=== PATIENT | male | born 1970 | race American Indian/Alaskan Native ===

== ENCOUNTER 2017-10-29 13:10 | Inpatient (IN) | payer OTHER ==
[2017-10-29] MEDS ORDERED: TYLENOL PO ONE (13:17)
[2017-10-29] MEDS ORDERED: NACL 0.9% 1000 ML 1,000 ML IV ONE ×2 (13:35→14:17)
[2017-10-29] MEDS ORDERED: LEVAQUIN 750MG/150ML 750 MG/150 ML BAG IV ONE (14:17)
[2017-10-29 14:50] LABS: Bacteria,Urine 2+ /HPF (Negative); Bilirubin,Urine NEG (Negative); Blood,Urine LG (Negative); Ketones,Urine NEG (Negative); Leukocyte Esterase,Urine NEG (Negative); Mucus,Urine FEW /HPF; Nitrite,Urine NEG (Negative); Urobilinogen,Urine < 2.0 mg/dL (<2.0)
[2017-10-29 14:52] LABS: WBC,Urine < 1.0 /HPF (0.0-6.0)
[2017-10-29 14:53] LABS: Hematocrit 48.2 % (35.5-45.6); Hemoglobin 16.2 gm/dl (11.8-15.2); Mean Corpuscular HGB Conc 34 % (32-34); Mean Corpuscular Hemoglobin 29 pg (28-32); Mean Corpuscular Volume 87 fl (84-94); Red Blood Count 5.55 M/mm3 (3.65-5.03); Red Cell Distribution Width 13.4 % (13.2-15.2); White Blood Count 13.7 K/mm3 (4.5-11.0)
[2017-10-29 15:11] LABS: Albumin 3.3 g/dL (3.9-5); Albumin/Globulin Ratio 0.8 %; Bilirubin,Total 0.9 mg/dL (0.1-1.2); Calcium 8.5 mg/dL (8.4-10.2); Chloride 92.6 mmol/L (98-107); Potassium 3.4 mmol/L (3.6-5.0); Total Protein 7.4 g/dL (6.3-8.2)
--- NOTE | 2017-10-29 15:14 | Emergency Department Report ---
HPI - General Chief Complaint: Fever Time Seen by Provider: 10/29/17 15:01 - HPI HPI: Room 5 The patient is a 47-year-old male presenting with a chief complaint of fever and cough. Patient states for 8-9 days he's had a cough that is occasionally productive. Patient missed a subjective fever in addition to the sore throat nausea and diarrhea. Patient states he has a sick contact at home who also has a cough. Location: Lungs Duration: 9 days Quality: Soreness Severity: Moderate Modifying factors: [see above] Context: [see above] Mode of transportation: [not driving] ED Past Medical Hx - Past Medical History Previous Medical History?: No - Surgical History Past Surgical History?: No - Family History Family history: no significant - Social History Smoking Status: Never Smoker Substance Use Type: None (denies illicit drug use), Alcohol (rare) ED Review of Systems ROS: Stated complaint: FLU LIKE SYMPTOMS Other details as noted in HPI Constitutional: diaphoresis, fever Eyes: denies: eye pain ENT: ear pain Respiratory: cough Cardiovascular: chest pain Gastrointestinal: abdominal pain, nausea, diarrhea. denies: vomiting Neurological: headache Physical Exam - Physical Exam Vital Signs: Vital Signs 10/29/17 13:14 Temperature 102.8 F H Pulse Rate 127 H Respiratory 20 Rate Blood Pressure 129/81 O2 Sat by Pulse 95 Oximetry Physical Exam: GENERAL: The patient is well-developed well-nourished male lying on stretcher appearing diaphoretic and in moderate discomfort. [] HEENT: Normocephalic. Atraumatic. Extraocular motions are intact. Patient has moist mucous membranes. NECK: Supple. Trachea midline CHEST/LUNGS: Clear to auscultation. There is no respiratory distress noted. HEART/CARDIOVASCULAR: Regular. There is tachycardia. There is no gallop rub or murmur. ABDOMEN: Abdomen is soft, nontender. Patient has normal bowel sounds. There is no abdominal distention. SKIN: There is no rash. There is no edema. There is diaphoresis. and gait. MUSCULOSKELETAL:There is no evidence of acute injury. ED Course Vital Signs 10/29/17 13:14 Temperature 102.8 F H Pulse Rate 127 H Respiratory 20 Rate Blood Pressure 129/81 O2 Sat by Pulse 95 Oximetry ED Medical Decision Making - Lab Data Result diagrams: 10/29/17 14:33 10/29/17 14:33 Laboratory Tests 10/29/17 10/29/17 10/29/17 14:12 14:33 14:33 WBC 13.7 H RBC 5.55 H Hgb 16.2 H Hct 48.2 H MCV 87 MCH 29 MCHC 34 RDW 13.4 Sodium 135 L Potassium 3.4 L Chloride 92.6 L Carbon Dioxide 19 L Anion Gap 27 BUN 28 H Creatinine 2.9 H Estimated GFR 28 BUN/Creatinine Ratio 10 Glucose 128 H Calcium 8.5 Total Bilirubin 0.90 AST 333 H ALT 107 H Alkaline Phosphatase 47 Total Protein 7.4 Albumin 3.3 L Albumin/Globulin Ratio 0.8 Urine Color Yellow Urine Turbidity Cloudy Urine pH 5.0 Ur Specific [place] 1.015 Urine Protein 100 mg/dl Urine Glucose (UA) Neg Urine Ketones Neg Urine Blood Lg Urine Nitrite Neg Urine Bilirubin Neg Urine Urobilinogen < 2.0 Ur Leukocyte Esterase Neg Urine WBC (Auto) < 1.0 Urine RBC (Auto) 4.0 Urine Bacteria (Auto) 2+ Amorphous Crystals Few Urine Mucus Few - Radiology Data Radiology results: image reviewed (chest x-ray) interpreted by me: Chest x-ray- large Lingular consolidation - Differential Diagnosis pneumonia, legionnaire's disease, gastroenteritis Critical care attestation.: If time is entered above; I have spent that time in minutes in the direct care of this critically ill patient, excluding procedure time. ED Disposition Clinical Impression: Pneumonia, Renal insufficiency Disposition: OP ADMIT IP TO THIS HOSP Is pt being admited?: Yes Does the pt Need Aspirin: No (renal insufficiency) Condition: Serious Instructions: Bacterial Pneumonia (ED) Referrals: PRIMARY CARE, [Primary Care Provider] - 3-5 Days Time of Disposition: 15:23 (hospitalist paged (Dr Hernandez))
[2017-10-29 15:30] LABS: Amylase 88 units/L (27-131); Lipase 42 units/L (13-60)
[2017-10-29 15:44] LABS: Basophils % (Manual) 0 % (0.0-1.8); Blastocytes % (Manual) 0 %; Eosinophils % (Manual) 0 % (0.0-4.3)
[2017-10-29 15:46] LABS: Giant Platelets Few; Large Platelets 1+; Platelet Estimate Consistent w Auto
--- NOTE | 2017-10-29 15:46 | XRay Report ---
FINAL REPORT EXAM: XR CHEST ROUTINE 2V HISTORY: cough TECHNIQUE: Two views of the chest Comparison: None FINDINGS: Normal heart size. 15 x 10 centimeter left lower lobe dense consolidation presumably infectious projecting over the spine on the lateral projection. There are no pleural effusions. Cannot exclude mediastinal adenopathy. The right lung is clear. The axial skeleton is unremarkable IMPRESSION: Large dense left lower lobe pneumonia. Recommend follow-up to complete resolution to exclude underlying neoplasm or other abnormality.
[2017-10-29 15:47] LABS: Diff Status Complete; RBC Morphology Normal
[2017-10-29 15:50] LABS: Platelet Count 109 K/mm3 (140-440)
[2017-10-29] MEDS ORDERED: ZOSYN/NS 3.375GM/50ML 3.375 GM/50 ML BAG IV ONE (16:00)
--- NOTE | 2017-10-29 17:54 | History and Physical Report ---
History of Present Illness Date of examination: 10/29/17 Date of admission: 10/29/17 17:29 Chief complaint: CC Fever and cough 7 days History of present illness: INAJA: 47 y/o AAM with no sig PMH comes in for Cough and fever for 1 week.Cough productive of mucoid sputum.Has body aches.Occasionally yellow sputum.No exacerbating or relieving factors. Past History Past Medical History: No medical history Past Surgical History: No surgical history Social history: no significant social history, full code Family history: hypertension Medications and Allergies Allergies Allergy/AdvReac Type Severity Reaction Status Date / Time No Known Allergies Allergy Unverified 10/29/17 13:13 Active Meds: Active Medications Piperacillin Sod/Tazobactam Sod (Zosyn/Ns 3.375gm/50ml) 3.375 gm in 50 mls @ 100 mls/hr IV Q6H [facility] Review of Systems All systems: negative Exam - Constitutional Vitals: Temp Pulse Resp BP Pulse Ox 102.8 F H 89 19 107/67 94 10/29/17 13:14 10/29/17 16:45 10/29/17 16:45 10/29/17 16:45 10/29/17 16:45 General appearance: Present: no acute distress, well-nourished - EENT Eyes: Present: PERRL ENT: hearing intact, clear oral mucosa - Neck Neck: Present: supple, normal ROM - Respiratory Respiratory effort: normal Respiratory: bilateral: CTA, rhonchi - Cardiovascular Heart rate: 90 Rhythm: regular Heart Sounds: Present: S1 & S2. Absent: rub, click - Extremities Extremities: pulses symmetrical, No edema Peripheral Pulses: within normal limits - Abdominal General gastrointestinal: Present: soft, non-tender, non-distended, normal bowel sounds Male genitourinary: Present: normal - Integumentary Integumentary: Present: clear, warm, dry - Musculoskeletal Musculoskeletal: gait normal, strength equal bilaterally - Psychiatric Psychiatric: appropriate mood/affect, intact judgment & insight - Neurologic Neurologic: CNII-XII intact, moves all extremities - Allied Health Allied health notes reviewed: nursing, case management Results - Labs CBC & Chem 7: 10/30/17 05:24 10/30/17 05:24 Labs: Laboratory Last Values WBC 13.7 K/mm3 (4.5-11.0) H 10/29/17 14:33 RBC 5.55 M/mm3 (3.65-5.03) H 10/29/17 14:33 Hgb 16.2 gm/dl (11.8-15.2) H 10/29/17 14:33 Hct 48.2 % (35.5-45.6) H 10/29/17 14:33 MCV 87 fl (84-94) 10/29/17 14:33 MCH 29 pg (28-32) 10/29/17 14:33 MCHC 34 % (32-34) 10/29/17 14:33 RDW 13.4 % (13.2-15.2) 10/29/17 14:33 Plt Count 109 K/mm3 (140-440) L 10/29/17 14:33 Add Manual Diff Complete 10/29/17 14:33 Total Counted 100 10/29/17 14:33 Seg Neuts % (Manual) 49.0 % (40.0-70.0) 10/29/17 14:33 Band Neutrophils % 42.0 % 10/29/17 14:33 Lymphocytes % (Manual) 8.0 % (13.4-35.0) L 10/29/17 14:33 Reactive Lymphs % (Man) 0 % 10/29/17 14:33 Monocytes % (Manual) 0 % (0.0-7.3) 10/29/17 14:33 Eosinophils % (Manual) 0 % (0.0-4.3) 10/29/17 14:33 Basophils % (Manual) 0 % (0.0-1.8) 10/29/17 14:33 Metamyelocytes % 1.0 % 10/29/17 14:33 Myelocytes % 0 % 10/29/17 14:33 Promyelocytes % 0 % 10/29/17 14:33 Blast Cells % 0 % 10/29/17 14:33 Nucleated RBC % Not Reportable 10/29/17 14:33 Seg Neutrophils # Man 6.7 K/mm3 (1.8-7.7) 10/29/17 14:33 Band Neutrophils # 5.8 K/mm3 10/29/17 14:33 Lymphocytes # (Manual) 1.1 K/mm3 (1.2-5.4) L 10/29/17 14:33 Abs React Lymphs (Man) 0.0 K/mm3 10/29/17 14:33 Monocytes # (Manual) 0.0 K/mm3 (0.0-0.8) 10/29/17 14:33 Eosinophils # (Manual) 0.0 K/mm3 (0.0-0.4) 10/29/17 14:33 Basophils # (Manual) 0.0 K/mm3 (0.0-0.1) 10/29/17 14:33 Metamyelocytes # 0.1 K/mm3 10/29/17 14:33 Myelocytes # 0.0 K/mm3 10/29/17 14:33 Promyelocytes # 0.0 K/mm3 10/29/17 14:33 Blast Cells # 0.0 K/mm3 10/29/17 14:33 WBC Morphology Not Reportable 10/29/17 14:33 Hypersegmented Neuts Not Reportable 10/29/17 14:33 Hyposegmented Neuts Not Reportable 10/29/17 14:33 Hypogranular Neuts Not Reportable 10/29/17 14:33 Smudge Cells Not Reportable 10/29/17 14:33 Toxic Granulation Not Reportable 10/29/17 14:33 Toxic Vacuolation Not Reportable 10/29/17 14:33 Dohle Bodies Not Reportable 10/29/17 14:33 Pelger-Huet Anomaly Not Reportable 10/29/17 14:33 Ana Rods Not Reportable 10/29/17 14:33 Platelet Estimate Consistent w auto 10/29/17 14:33 Clumped Platelets Not Reportable 10/29/17 14:33 Plt Clumps, EDTA Not Reportable 10/29/17 14:33 Large Platelets 1+ 10/29/17 14:33 Giant Platelets Few 10/29/17 14:33 Platelet Satelliting Not Reportable 10/29/17 14:33 Plt Morphology Comment Not Reportable 10/29/17 14:33 RBC Morphology Normal 10/29/17 14:33 Dimorphic RBCs Not Reportable 10/29/17 14:33 Polychromasia Not Reportable 10/29/17 14:33 Hypochromasia Not Reportable 10/29/17 14:33 Poikilocytosis Not Reportable 10/29/17 14:33 Anisocytosis Not Reportable 10/29/17 14:33 Microcytosis Not Reportable 10/29/17 14:33 Macrocytosis Not Reportable 10/29/17 14:33 Spherocytes Not Reportable 10/29/17 14:33 Pappenheimer Bodies Not Reportable 10/29/17 14:33 Sickle Cells Not Reportable 10/29/17 14:33 Target Cells Not Reportable 10/29/17 14:33 Tear Drop Cells Not Reportable 10/29/17 14:33 Ovalocytes Not Reportable 10/29/17 14:33 Helmet Cells Not Reportable 10/29/17 14:33 [place] Bodies Not Reportable 10/29/17 14:33 Arnold Rings Not Reportable 10/29/17 14:33 Mcqueeney Cells Not Reportable 10/29/17 14:33 Bite Cells Not Reportable 10/29/17 14:33 Crenated Cell Not Reportable 10/29/17 14:33 Elliptocytes Not Reportable 10/29/17 14:33 Acanthocytes (Spur) Not Reportable 10/29/17 14:33 Rouleaux Not Reportable 10/29/17 14:33 Hemoglobin C Crystals Not Reportable 10/29/17 14:33 Schistocytes Not Reportable 10/29/17 14:33 Malaria parasites Not Reportable 10/29/17 14:33 Aashish Bodies Not Reportable 10/29/17 14:33 Hem Pathologist Commnt No 10/29/17 14:33 Sodium 135 mmol/L (137-145) L 10/29/17 14:33 Potassium 3.4 mmol/L (3.6-5.0) L 10/29/17 14:33 Chloride 92.6 mmol/L (98-107) L 10/29/17 14:33 Carbon Dioxide 19 mmol/L (22-30) L 10/29/17 14:33 Anion Gap 27 mmol/L 10/29/17 14:33 BUN 28 mg/dL (9-20) H 10/29/17 14:33 Creatinine 2.9 mg/dL (0.8-1.5) H 10/29/17 14:33 Estimated GFR 28 ml/min 10/29/17 14:33 BUN/Creatinine Ratio 10 % 10/29/17 14:33 Glucose 128 mg/dL (75-100) H 10/29/17 14:33 Lactic Acid 2.20 mmol/L (0.7-2.0) H* 10/29/17 14:33 Calcium 8.5 mg/dL (8.4-10.2) 10/29/17 14:33 Total Bilirubin 0.90 mg/dL (0.1-1.2) 10/29/17 14:33 AST 333 units/L (5-40) H 10/29/17 14:33 ALT 107 units/L (7-56) H 10/29/17 14:33 Alkaline Phosphatase 47 units/L (35-129) 10/29/17 14:33 Total Protein 7.4 g/dL (6.3-8.2) 10/29/17 14:33 Albumin 3.3 g/dL (3.9-5) L 10/29/17 14:33 Albumin/Globulin Ratio 0.8 % 10/29/17 14:33 Amylase 88 units/L (27-131) 10/29/17 14:33 Lipase 42 units/L (13-60) 10/29/17 14:33 Urine Color Yellow (Yellow) 10/29/17 14:12 Urine Turbidity Cloudy (Clear) 10/29/17 14:12 Urine pH 5.0 (5.0-7.0) 10/29/17 14:12 Ur Specific [place] 1.015 (1.003-1.030) 10/29/17 14:12 Urine Protein 100 mg/dl mg/dL (Negative) 10/29/17 14:12 Urine Glucose (UA) Neg mg/dL (Negative) 10/29/17 14:12 Urine Ketones Neg mg/dL (Negative) 10/29/17 14:12 Urine Blood Lg (Negative) 10/29/17 14:12 Urine Nitrite Neg (Negative) 10/29/17 14:12 Urine Bilirubin Neg (Negative) 10/29/17 14:12 Urine Urobilinogen < 2.0 mg/dL (<2.0) 10/29/17 14:12 Ur Leukocyte Esterase Neg (Negative) 10/29/17 14:12 Urine WBC (Auto) < 1.0 /HPF (0.0-6.0) 10/29/17 14:12 Urine RBC (Auto) 4.0 /HPF (0.0-6.0) 10/29/17 14:12 Urine Bacteria (Auto) 2+ /HPF (Negative) 10/29/17 14:12 Amorphous Crystals Few 10/29/17 14:12 Urine Mucus Few /HPF 10/29/17 14:12 - Imaging and Cardiology EKG: report reviewed Chest x-ray: report reviewed (Large LLL dense infiltrate./Consolidation) Assessment and Plan Advance Directives: Yes (Full code) VTE prophylaxis?: Chemical Plan of care discussed with patient/family: Yes - Patient Problems (1) SIRS (systemic inflammatory response syndrome) Current Visit: Yes Status: Acute Plan to address problem: Patient has high lactic acid and fever. IV abx for now IV fluids (2) LLL pneumonia Current Visit: Yes Status: Acute Qualifiers: Pneumonia type: due to unspecified organism Qualified Code(s): J18.1 - Lobar pneumonia, unspecified organism Plan to address problem: Patient started on IV Abx-IV Levaquin q48 b/c of increased creatinine (3) JAYE (acute kidney injury) Current Visit: Yes Status: Acute Plan to address problem: Possible ATN IV fluids for now (4) Transaminitis Current Visit: Yes Status: Acute Plan to address problem: Etio unclear Check Hepatitis profile SIRS?? (5) DVT prophylaxis Current Visit: Yes Status: Acute Plan to address problem: On Lovenox
[2017-10-29] MEDS ORDERED: MORPHINE IV PRN (17:56)
[2017-10-29] MEDS ORDERED: AMBIEN PO PRN (17:56)
[2017-10-29] MEDS ORDERED: PERCOCET 5/325 PO PRN (17:56)
[2017-10-29] MEDS ORDERED: ZOFRAN IV PRN (17:56)
[2017-10-29] MEDS ORDERED: DULCOLAX PR PRN (17:56)
[2017-10-29] MEDS ORDERED: MILK OF MAGNESIA PO PRN (17:56)
[2017-10-29] MEDS ORDERED: D5NS 1,000 ML IV SCH (18:00)
[2017-10-29] MEDS ORDERED: LEVAQUIN 750MG/150ML 750 MG/150 ML BAG IV SCH (18:00)
[2017-10-29] MEDS ORDERED: ZOSYN/NS 3.375GM/50ML 3.375 GM/50 ML BAG IV SCH (22:00)
[2017-10-29] MEDS ORDERED: PEPCID PO SCH (22:00)
[2017-10-30] MEDS: TYLENOL PO PRN ×2 (02:06→12:56)
[2017-10-30] MEDS: LEVAQUIN 750MG/150ML 750 MG/150 ML BAG IV SCH (02:10)
[2017-10-30 05:51] LABS: Basophils % (Auto) 0.3 % (0.0-1.8); Hematocrit 45.2 % (35.5-45.6); Hemoglobin 15.2 gm/dl (11.8-15.2); Mean Corpuscular HGB Conc 34 % (32-34); Mean Corpuscular Hemoglobin 30 pg (28-32); Mean Corpuscular Volume 89 fl (84-94); Red Blood Count 5.06 M/mm3 (3.65-5.03); Red Cell Distribution Width 13.4 % (13.2-15.2); White Blood Count 13.7 K/mm3 (4.5-11.0)
[2017-10-30 06:02] LABS: Platelet Count 112 K/mm3 (140-440)
[2017-10-30 06:20] LABS: Albumin 3.1 g/dL (3.9-5); Bilirubin,Total 1.3 mg/dL (0.1-1.2); Calcium 7.8 mg/dL (8.4-10.2); Chloride 94.5 mmol/L (98-107); Total Protein 6.1 g/dL (6.3-8.2)
[2017-10-30] MEDS: PEPCID PO SCH ×2 (10:21→22:03)
[2017-10-30] MEDS ORDERED: D5NS 1,000 ML IV SCH (12:00)
--- NOTE | 2017-10-30 21:37 | Progress Note ---
Assessment and Plan - Patient Problems (1) SIRS (systemic inflammatory response syndrome) Current Visit: Yes Status: Acute Plan to address problem: Patient has high lactic acid and fever. IV abx for now IV fluids (2) LLL pneumonia Current Visit: Yes Status: Acute Qualifiers: Pneumonia type: due to unspecified organism Qualified Code(s): J18.1 - Lobar pneumonia, unspecified organism Plan to address problem: Patient started on IV Abx-IV Levaquin q48 b/c of increased creatinine (3) JAYE (acute kidney injury) Current Visit: Yes Status: Acute Plan to address problem: Possible ATN IV fluids for now Worsening renal function (4) Transaminitis Current Visit: Yes Status: Acute Plan to address problem: Etio unclear Check Hepatitis profile SIRS?? (5) DVT prophylaxis Current Visit: Yes Status: Acute Plan to address problem: On Lovenox Subjective Date of service: 10/30/17 Principal diagnosis: SIRS LLL Pneumonia Interval history: Symptomatically better Objective - Constitutional Vitals: Vital Signs - 12hr 10/30/17 10/30/17 10/30/17 10:00 10:05 12:41 Temperature 99.6 F Pulse Rate 111 H Respiratory 20 Rate Blood Pressure 118/74 O2 Sat by Pulse 98 97 95 Oximetry 10/30/17 10/30/17 15:31 19:50 Temperature 99.5 F 98.9 F Pulse Rate 85 98 H Respiratory 50 H 20 Rate Blood Pressure 105/73 110/63 O2 Sat by Pulse 96 95 Oximetry General appearance: Present: no acute distress, well-nourished - EENT Eyes: PERRL, EOM intact ENT: hearing intact, clear oral mucosa Ears: bilateral: normal - Neck Neck: supple, normal ROM - Respiratory Respiratory effort: normal Respiratory: left: rales, wheezing, bilateral: CTA - Breasts Breasts: normal - Cardiovascular Heart rate: 80 Rhythm: regular Heart Sounds: Present: S1 & S2. Absent: gallop, rub Extremities: no ischemia, pulses intact, pulses symmetrical, No edema, normal color, Full ROM - Gastrointestinal General gastrointestinal: Present: soft, non-tender, non-distended, normal bowel sounds Rectal Exam: deferred - Genitourinary Male genitourinary: normal - Integumentary Integumentary: clear, warm, dry - Musculoskeletal Musculoskeletal: 1, strength equal bilaterally - Neurologic Neurologic: moves all extremities - Psychiatric Psychiatric: memory intact, appropriate mood/affect, intact judgment & insight - Labs CBC & Chem 7: 10/30/17 05:24 10/30/17 05:24 Labs: Abnormal lab results 10/30/17 10/30/17 Range/Units 05:24 05:24 WBC 13.7 H (4.5-11.0) K/mm3 RBC 5.06 H (3.65-5.03) M/mm3 Plt Count 112 L (140-440) K/mm3 Lymph % (Auto) 5.8 L (13.4-35.0) % Lymph # 0.8 L (1.2-5.4) K/mm3 Seg Neutrophils % 89.0 H (40.0-70.0) % Seg Neutrophils # 12.2 H (1.8-7.7) K/mm3 Sodium 136 L (137-145) mmol/L Chloride 94.5 L (98-107) mmol/L Carbon Dioxide 20 L (22-30) mmol/L BUN 49 H (9-20) mg/dL Creatinine 5.0 H D (0.8-1.5) mg/dL Glucose 118 H (75-100) mg/dL Calcium 7.8 L (8.4-10.2) mg/dL Total Bilirubin 1.30 H (0.1-1.2) mg/dL AST 401 H (5-40) units/L ALT 126 H (7-56) units/L Total Protein 6.1 L (6.3-8.2) g/dL Albumin 3.1 L (3.9-5) g/dL - Imaging and cardiology Chest x-ray: report reviewed
[2017-10-31 09:01] LABS: Basophils % (Auto) 0.4 % (0.0-1.8); Hematocrit 43.8 % (35.5-45.6); Hemoglobin 14.8 gm/dl (11.8-15.2); Mean Corpuscular HGB Conc 34 % (32-34); Mean Corpuscular Hemoglobin 30 pg (28-32); Mean Corpuscular Volume 89 fl (84-94); Red Blood Count 4.94 M/mm3 (3.65-5.03); Red Cell Distribution Width 13.6 % (13.2-15.2); White Blood Count 14.3 K/mm3 (4.5-11.0)
[2017-10-31 09:06] LABS: Platelet Count 137 K/mm3 (140-440)
--- NOTE | 2017-10-31 09:06 | Consultation ---
History of Present Illness - Reason for Consult Consult date: 10/31/17 acute renal failure, metabolic acidosis - History of Present Illness The patient is a 47-year-old male without any significant medical history came to the ER with fever and cough. The symptoms started approximately 2 weeks ago with cough that is occasionally productive. Subsequently he developed fever, sore throat, nausea, dry heeves and diarrhea. Last week he became dizzy at work. His PO intake has been poor and urine output has decreased. Patient states he has a sick contact at home who also has a cough. Denies any prior kidney problem. No NSAID intake. The creatinine was 2.9 on admission and has increased to 8.5 today. Baseline renal function is unknown. Stopped smoking about 6 months ago. 35 pack year of smoking. Past History Past Medical History: No medical history Past Surgical History: No surgical history Social history: no significant social history, full code Family history: hypertension Medications and Allergies Allergies Allergy/AdvReac Type Severity Reaction Status Date / Time No Known Allergies Allergy Unverified 10/29/17 13:13 Home Medications Medication Instructions Recorded Confirmed Last Taken Type No Known Home Medications [No 10/31/17 10/31/17 Unknown History Reported Home Medications] Active Meds: Active Medications Acetaminophen (Tylenol) 650 mg PO Q4H PRN PRN Reason: Pain MILD(1-3)/Fever >100.5/[facility] Last Admin: 10/30/17 12:56 Dose: 650 mg Bisacodyl (Dulcolax) 10 mg AR QDAY PRN PRN Reason: Constipation unrelieved by MOM Famotidine (Pepcid) 10 mg PO BID [facility] Last Admin: 10/30/17 22:03 Dose: 10 mg Levofloxacin/Dextrose (Levaquin 750mg/150ml) 750 mg in 150 mls @ 100 mls/hr IV Q48H [facility] Last Admin: 10/30/17 02:10 Dose: 100 mls/hr Dextrose/Sodium Chloride (D5ns) 1,000 mls @ 100 mls/hr IV DIRECT [facility] Last Admin: 10/31/17 08:49 Dose: 100 mls/hr Magnesium Hydroxide (Milk Of Magnesia) 30 ml PO Q4H PRN PRN Reason: Constipation Morphine Sulfate (Morphine) 2 mg IV Q4H PRN PRN Reason: Pain, Moderate (4-6) Ondansetron HCl (Zofran) 4 mg IV Q8H PRN PRN Reason: N/V unrelieved by Reglan Oxycodone/Acetaminophen (Percocet 5/325) 1 tab PO Q6H PRN PRN Reason: Pain, Moderate (4-6) Zolpidem Tartrate (Ambien) 5 mg PO QHS PRN PRN Reason: Insomnia Review of Systems Constitutional: fever, sweats, anorexia, fatigue, no weight loss, no weight gain , no weakness Ears, nose, mouth and throat: epistaxis Cardiovascular: lightheadedness, no chest pain, no orthopnea, no palpitations, no edema, no syncope, no shortness of breath, no high blood pressure, no leg edema Respiratory: cough, cough with sputum, congestion, no excessive sputum, no hemoptysis, no shortness of breath, no dyspnea on exertion Gastrointestinal: nausea, vomiting, diarrhea, no abdominal pain, no melena, no hematochezia Genitourinary Male: no dysuria, no hematuria Rectal: no bleeding Musculoskeletal: no redness of joints, no hot joints Integumentary: no rash, no sores, no wounds, no jaundice Neurological: no paralysis, no seizures, no syncope, no change in speech, no change in mentation, no double vision, no loss of vision Psychiatric: change in appetite, no disorientation Endocrine: no weight change Hematologic/Lymphatic: no easy bleeding Exam - Vital Signs Vital signs: Vital Signs Temp Pulse Resp BP Pulse Ox 102.8 F H 127 H 20 129/81 95 10/29/17 13:14 10/29/17 13:14 10/29/17 13:14 10/29/17 13:14 10/29/17 13:14 - General Appearance General appearance: well-developed, well-nourished, appears stated age, obese, other (no distress) EENT: ATNC, PERRL, mucous membranes dry, hearing intact, vision intact Neck: Present: neck supple, trachea midline Respiratory: Clear to Ascultation Heart: regular, S1S2, no murmurs Gastrointestinal: Present: normoactive bowel sounds, obese. Absent: tenderness , distended Integumentary: no rash, warm and dry Neurologic: no focal deficit, no asterixis, alert and oriented x3, CN 3-12 intact Musculoskeletal: Present: other (no edema) Psychiatric: mood/affect appropriate, cooperative Results - Lab Results 10/31/17 08:40 10/31/17 08:40 Most recent lab results Calcium 7.8 mg/dL (8.4-10.2) L 10/30/17 05:24 - Image Kidney/bladder ultrasound: report reviewed Assessment and Plan 1. Acute kidney injury: Hemodynamic JAYE in the setting of volume depletion. Continue IV fluids. Renal US is negative. Renal prognosis is guarded. 2. Metabolic acidosis: Start on Sodium bicarbonate. 3. Volume depletion. 4. Left LL pneumonia.
[2017-10-31 09:14] LABS: Calcium 7.8 mg/dL (8.4-10.2); Chloride 90.3 mmol/L (98-107); Potassium 3.6 mmol/L (3.6-5.0)
[2017-10-31] MEDS: PEPCID PO SCH ×2 (11:41→23:33)
--- NOTE | 2017-10-31 11:51 | Ultrasound Report ---
ULTRASOUND RENAL BILATERAL HISTORY: Acute renal failure. TECHNIQUE: transabdominal ultrasound with color Doppler interrogation. FINDINGS: The right kidney measures 12.2 x 6.3 x 6.9cm. Right renal cortex: 2.2cm. The left kidney measures 13.0 x 6.6 x 6.5cm. Left renal cortex: 2.4cm. Scans of the kidneys show normal renal contours. There is normal central calyceal clustering and good preservation of the cortical thickness. There is no evidence of mass or hydronephrosis. The views of the bladder and the region of the ureters appear normal. IMPRESSION: Unremarkable renal ultrasound.
[2017-10-31] MEDS: SODIUM BICARBONATE PO SCH ×2 (14:00→23:33)
[2017-10-31] MEDS: LEVAQUIN 750MG/150ML 750 MG/150 ML BAG IV SCH (19:20)
--- NOTE | 2017-10-31 19:41 | Progress Note ---
Assessment and Plan Assessment and plan: 47 yo AAM admitted for fever and productive cough Sepsis Pneumonia Continue antibiotics, IV fluids LLL pneumonia Continue antibiotics Acute renal failure Possible secondary to ATN Renal function worsening despite IV hydration; creatinine up to 8.5 today Allergies following Metabolic acidosis Due to renal failure The underlying condition Hyperglycemia SSI as needed Thrombocytopenia Likely due to sepsis Monitor Elevated LFTs Possible due to sepsis Check hepatitis panel Obesity Counseled regarding importance of losing weight and lifestyle changes DVT prophylaxis History Interval history: no specific complaints except for mild fatique Hospitalist Physical - Constitutional Vitals: Temp Pulse Resp BP Pulse Ox 98.2 F 82 18 114/85 94 10/31/17 17:26 10/31/17 17:26 10/31/17 17:26 10/31/17 17:26 10/31/17 17:26 General appearance: Present: no acute distress, well-nourished - EENT Eyes: Present: PERRL, EOM intact. Absent: scleral icterus, conjunctival injection - Neck Neck: Present: supple, other (short neck). Absent: enlarged thyroid, masses or JVD - Respiratory Respiratory effort: normal Respiratory: bilateral: diminished, negative: rhonchi, wheezing - Cardiovascular Rhythm: regular Heart Sounds: Present: S1 & S2. Absent: systolic murmur - Extremities Extremities: no ischemia - Abdominal General gastrointestinal: soft, non-tender, non-distended, normal bowel sounds, other (abdomen obese, protuberant) - Neurologic Neurologic: CNII-XII intact, no focal deficits Results - Labs CBC & Chem 7: 11/03/17 06:11 11/03/17 06:11 Labs: Laboratory Last Values WBC 14.3 K/mm3 (4.5-11.0) H 10/31/17 08:40 RBC 4.94 M/mm3 (3.65-5.03) 10/31/17 08:40 Hgb 14.8 gm/dl (11.8-15.2) 10/31/17 08:40 Hct 43.8 % (35.5-45.6) 10/31/17 08:40 MCV 89 fl (84-94) 10/31/17 08:40 MCH 30 pg (28-32) 10/31/17 08:40 MCHC 34 % (32-34) 10/31/17 08:40 RDW 13.6 % (13.2-15.2) 10/31/17 08:40 Plt Count 137 K/mm3 (140-440) L 10/31/17 08:40 Lymph % (Auto) 9.0 % (13.4-35.0) L 10/31/17 08:40 [place] % (Auto) 6.0 % (0.0-7.3) 10/31/17 08:40 Eos % (Auto) 0.0 % (0.0-4.3) 10/31/17 08:40 Baso % (Auto) 0.4 % (0.0-1.8) 10/31/17 08:40 Lymph # 1.3 K/mm3 (1.2-5.4) 10/31/17 08:40 [place] # 0.9 K/mm3 (0.0-0.8) H 10/31/17 08:40 Eos # 0.0 K/mm3 (0.0-0.4) 10/31/17 08:40 Baso # 0.1 K/mm3 (0.0-0.1) 10/31/17 08:40 Add Manual Diff Complete 10/29/17 14:33 Total Counted 100 10/29/17 14:33 Seg Neutrophils % 84.6 % (40.0-70.0) H 10/31/17 08:40 Seg Neuts % (Manual) 49.0 % (40.0-70.0) 10/29/17 14:33 Band Neutrophils % 42.0 % 10/29/17 14:33 Lymphocytes % (Manual) 8.0 % (13.4-35.0) L 10/29/17 14:33 Reactive Lymphs % (Man) 0 % 10/29/17 14:33 Monocytes % (Manual) 0 % (0.0-7.3) 10/29/17 14:33 Eosinophils % (Manual) 0 % (0.0-4.3) 10/29/17 14:33 Basophils % (Manual) 0 % (0.0-1.8) 10/29/17 14:33 Metamyelocytes % 1.0 % 10/29/17 14:33 Myelocytes % 0 % 10/29/17 14:33 Promyelocytes % 0 % 10/29/17 14:33 Blast Cells % 0 % 10/29/17 14:33 Nucleated RBC % Not Reportable 10/29/17 14:33 Seg Neutrophils # 12.1 K/mm3 (1.8-7.7) H 10/31/17 08:40 Seg Neutrophils # Man 6.7 K/mm3 (1.8-7.7) 10/29/17 14:33 Band Neutrophils # 5.8 K/mm3 10/29/17 14:33 Lymphocytes # (Manual) 1.1 K/mm3 (1.2-5.4) L 10/29/17 14:33 Abs React Lymphs (Man) 0.0 K/mm3 10/29/17 14:33 Monocytes # (Manual) 0.0 K/mm3 (0.0-0.8) 10/29/17 14:33 Eosinophils # (Manual) 0.0 K/mm3 (0.0-0.4) 10/29/17 14:33 Basophils # (Manual) 0.0 K/mm3 (0.0-0.1) 10/29/17 14:33 Metamyelocytes # 0.1 K/mm3 10/29/17 14:33 Myelocytes # 0.0 K/mm3 10/29/17 14:33 Promyelocytes # 0.0 K/mm3 10/29/17 14:33 Blast Cells # 0.0 K/mm3 10/29/17 14:33 WBC Morphology Not Reportable 10/29/17 14:33 Hypersegmented Neuts Not Reportable 10/29/17 14:33 Hyposegmented Neuts Not Reportable 10/29/17 14:33 Hypogranular Neuts Not Reportable 10/29/17 14:33 Smudge Cells Not Reportable 10/29/17 14:33 Toxic Granulation Not Reportable 10/29/17 14:33 Toxic Vacuolation Not Reportable 10/29/17 14:33 Dohle Bodies Not Reportable 10/29/17 14:33 Pelger-Huet Anomaly Not Reportable 10/29/17 14:33 Ana Rods Not Reportable 10/29/17 14:33 Platelet Estimate Consistent w auto 10/29/17 14:33 Clumped Platelets Not Reportable 10/29/17 14:33 Plt Clumps, EDTA Not Reportable 10/29/17 14:33 Large Platelets 1+ 10/29/17 14:33 Giant Platelets Few 10/29/17 14:33 Platelet Satelliting Not Reportable 10/29/17 14:33 Plt Morphology Comment Not Reportable 10/29/17 14:33 RBC Morphology Normal 10/29/17 14:33 Dimorphic RBCs Not Reportable 10/29/17 14:33 Polychromasia Not Reportable 10/29/17 14:33 Hypochromasia Not Reportable 10/29/17 14:33 Poikilocytosis Not Reportable 10/29/17 14:33 Anisocytosis Not Reportable 10/29/17 14:33 Microcytosis Not Reportable 10/29/17 14:33 Macrocytosis Not Reportable 10/29/17 14:33 Spherocytes Not Reportable 10/29/17 14:33 Pappenheimer Bodies Not Reportable 10/29/17 14:33 Sickle Cells Not Reportable 10/29/17 14:33 Target Cells Not Reportable 10/29/17 14:33 Tear Drop Cells Not Reportable 10/29/17 14:33 Ovalocytes Not Reportable 10/29/17 14:33 Helmet Cells Not Reportable 10/29/17 14:33 [place] Bodies Not Reportable 10/29/17 14:33 [place] Rings Not Reportable 10/29/17 14:33 [place] Cells Not Reportable 10/29/17 14:33 Bite Cells Not Reportable 10/29/17 14:33 Crenated Cell Not Reportable 10/29/17 14:33 Elliptocytes Not Reportable 10/29/17 14:33 Acanthocytes (Spur) Not Reportable 10/29/17 14:33 Rouleaux Not Reportable 10/29/17 14:33 Hemoglobin C Crystals Not Reportable 10/29/17 14:33 Schistocytes Not Reportable 10/29/17 14:33 Malaria parasites Not Reportable 10/29/17 14:33 Aashish Bodies Not Reportable 10/29/17 14:33 Hem Pathologist Commnt No 10/29/17 14:33 Sodium 133 mmol/L (137-145) L 10/31/17 08:40 Potassium 3.6 mmol/L (3.6-5.0) 10/31/17 08:40 Chloride 90.3 mmol/L (98-107) L 10/31/17 08:40 Carbon Dioxide 17 mmol/L (22-30) L 10/31/17 08:40 Anion Gap 29 mmol/L 10/31/17 08:40 BUN 81 mg/dL (9-20) H 10/31/17 08:40 Creatinine 8.5 mg/dL (0.8-1.5) H D 10/31/17 08:40 Estimated GFR 8 ml/min 10/31/17 08:40 BUN/Creatinine Ratio 10 % 10/31/17 08:40 Glucose 137 mg/dL (75-100) H 10/31/17 08:40 Hemoglobin A1c 5.9 % (4-6) 10/29/17 14:33 Lactic Acid 2.20 mmol/L (0.7-2.0) H* 10/29/17 14:33 Calcium 7.8 mg/dL (8.4-10.2) L 10/31/17 08:40 Total Bilirubin 1.30 mg/dL (0.1-1.2) H 10/30/17 05:24 AST 401 units/L (5-40) H 10/30/17 05:24 ALT 126 units/L (7-56) H 10/30/17 05:24 Alkaline Phosphatase 41 units/L (35-129) 10/30/17 05:24 Total Protein 6.1 g/dL (6.3-8.2) L 10/30/17 05:24 Albumin 3.1 g/dL (3.9-5) L 10/30/17 05:24 Albumin/Globulin Ratio 1.0 % 10/30/17 05:24 Amylase 88 units/L (27-131) 10/29/17 14:33 Lipase 42 units/L (13-60) 10/29/17 14:33 Urine Color Yellow (Yellow) 10/29/17 14:12 Urine Turbidity Cloudy (Clear) 10/29/17 14:12 Urine pH 5.0 (5.0-7.0) 10/29/17 14:12 Ur Specific [place] 1.015 (1.003-1.030) 10/29/17 14:12 Urine Protein 100 mg/dl mg/dL (Negative) 10/29/17 14:12 Urine Glucose (UA) Neg mg/dL (Negative) 10/29/17 14:12 Urine Ketones Neg mg/dL (Negative) 10/29/17 14:12 Urine Blood Lg (Negative) 10/29/17 14:12 Urine Nitrite Neg (Negative) 10/29/17 14:12 Urine Bilirubin Neg (Negative) 10/29/17 14:12 Urine Urobilinogen < 2.0 mg/dL (<2.0) 10/29/17 14:12 Ur Leukocyte Esterase Neg (Negative) 10/29/17 14:12 Urine WBC (Auto) < 1.0 /HPF (0.0-6.0) 10/29/17 14:12 Urine RBC (Auto) 4.0 /HPF (0.0-6.0) 10/29/17 14:12 Urine Bacteria (Auto) 2+ /HPF (Negative) 10/29/17 14:12 Amorphous Crystals Few 10/29/17 14:12 Urine Mucus Few /HPF 10/29/17 14:12
[2017-11-01 06:41] LABS: Basophils % (Auto) 0.2 % (0.0-1.8); Eosinophils % (Auto) 0.1 % (0.0-4.3); Hematocrit 42.2 % (35.5-45.6); Hemoglobin 14.4 gm/dl (11.8-15.2); Mean Corpuscular HGB Conc 34 % (32-34); Mean Corpuscular Hemoglobin 30 pg (28-32); Mean Corpuscular Volume 88 fl (84-94); Platelet Count 171 K/mm3 (140-440); Red Blood Count 4.81 M/mm3 (3.65-5.03); Red Cell Distribution Width 13.6 % (13.2-15.2); White Blood Count 11.4 K/mm3 (4.5-11.0)
--- NOTE | 2017-11-01 06:52 | Progress Note ---
Assessment and Plan 1. Acute kidney injury: Hemodynamic JAYE in the setting of volume depletion. Renal function continue to decline. Continue IV fluids. Renal prognosis is guarded. Discussed about the possibility of hemodialysis. 2. Metabolic acidosis: Increase Sodium bicarbonate. 3. Volume depletion. 4. Left LL pneumonia. Subjective Date of service: 11/01/17 Principal diagnosis: SIRS LLL Pneumonia Interval history: Appetite is low. Objective - Vital Signs Vital signs: Vital Signs - 12hr 10/31/17 11/01/17 22:00 01:20 Temperature 97.4 F L Pulse Rate 83 Respiratory 17 Rate Blood Pressure 115/79 O2 Sat by Pulse 96 91 Oximetry - General Appearance General appearance: well-developed, well-nourished, appears stated age, obese, other (no distress) EENT: ATNC, PERRL, mucous membranes moist, hearing intact, vision intact Neck: supple Respiratory: Present: Clear to Ascultation Cardiology: regular, S1S2, no murmurs Gastrointestinal: normoactive bowel sounds, no tenderness, no distended, obese Integumentary: no rash, warm and dry Neurologic: no focal deficit, no asterixis, alert and oriented x3 Musculoskeletal: other (no edema) Psychiatric: mood/affect appropriate, cooperative - Lab 11/01/17 06:05 11/01/17 06:05 Most recent lab results Calcium 7.8 mg/dL (8.4-10.2) L 10/31/17 08:40
[2017-11-01 07:02] LABS: Calcium 7.8 mg/dL (8.4-10.2); Chloride 90.1 mmol/L (98-107); Potassium 3.7 mmol/L (3.6-5.0)
[2017-11-01] MEDS: SODIUM BICARBONATE PO SCH ×4 (08:00→21:28)
[2017-11-01] MEDS: LEVAQUIN 500MG/100ML 500 MG/100 ML BAG IV SCH (10:00)
[2017-11-01] MEDS: PEPCID PO SCH ×2 (10:26→21:28)
--- NOTE | 2017-11-01 22:25 | Progress Note ---
Assessment and Plan Assessment and plan: 47 yo AAM admitted for fever and productive cough Sepsis Pneumonia Continue antibiotics renally dosed, IV fluids LLL pneumonia Continue antibiotics Acute renal failure Possible secondary to ATN Renal function continues to worsen despite IV hydration; creatinine up to 10 today Nephrology following and considers renal prognosis guarded Metabolic acidosis Due to renal failure Treat underlying condition Hyperglycemia SSI as needed Thrombocytopenia Likely due to sepsis Monitor Elevated LFTs Possible due to sepsis Hepatitis panel pending Obesity Counseled regarding importance of losing weight and lifestyle changes DVT prophylaxis History Interval history: doing well, no complaints despite worsening renal function Hospitalist Physical - Constitutional Vitals: Temp Pulse Resp BP Pulse Ox 98.5 F 76 18 136/77 98 11/01/17 16:24 11/01/17 16:24 11/01/17 16:24 11/01/17 16:24 11/01/17 16:24 General appearance: Present: no acute distress, obese - EENT Eyes: Present: PERRL, EOM intact. Absent: scleral icterus, conjunctival injection - Neck Neck: Present: supple, normal ROM. Absent: masses or JVD - Respiratory Respiratory effort: normal Respiratory: bilateral: diminished (bibasilar), negative: rhonchi, wheezing - Cardiovascular Rhythm: regular Heart Sounds: Present: S1 & S2. Absent: systolic murmur - Extremities Extremities: no ischemia - Abdominal General gastrointestinal: soft, non-tender, normal bowel sounds, other (abdomen obese, protuberant) - Psychiatric Psychiatric: no intact judgment & insight, cooperative - Neurologic Neurologic: CNII-XII intact, no focal deficits Results - Labs CBC & Chem 7: 11/03/17 06:11 11/03/17 06:11 Labs: Laboratory Last Values WBC 11.4 K/mm3 (4.5-11.0) H 11/01/17 06:05 RBC 4.81 M/mm3 (3.65-5.03) 11/01/17 06:05 Hgb 14.4 gm/dl (11.8-15.2) 11/01/17 06:05 Hct 42.2 % (35.5-45.6) 11/01/17 06:05 MCV 88 fl (84-94) 11/01/17 06:05 MCH 30 pg (28-32) 11/01/17 06:05 MCHC 34 % (32-34) 11/01/17 06:05 RDW 13.6 % (13.2-15.2) 11/01/17 06:05 Plt Count 171 K/mm3 (140-440) 11/01/17 06:05 Lymph % (Auto) 11.8 % (13.4-35.0) L 11/01/17 06:05 [place] % (Auto) 10.9 % (0.0-7.3) H 11/01/17 06:05 Eos % (Auto) 0.1 % (0.0-4.3) 11/01/17 06:05 Baso % (Auto) 0.2 % (0.0-1.8) 11/01/17 06:05 Lymph # 1.3 K/mm3 (1.2-5.4) 11/01/17 06:05 [place] # 1.2 K/mm3 (0.0-0.8) H 11/01/17 06:05 Eos # 0.0 K/mm3 (0.0-0.4) 11/01/17 06:05 Baso # 0.0 K/mm3 (0.0-0.1) 11/01/17 06:05 Add Manual Diff Complete 10/29/17 14:33 Total Counted 100 10/29/17 14:33 Seg Neutrophils % 77.0 % (40.0-70.0) H 11/01/17 06:05 Seg Neuts % (Manual) 49.0 % (40.0-70.0) 10/29/17 14:33 Band Neutrophils % 42.0 % 10/29/17 14:33 Lymphocytes % (Manual) 8.0 % (13.4-35.0) L 10/29/17 14:33 Reactive Lymphs % (Man) 0 % 10/29/17 14:33 Monocytes % (Manual) 0 % (0.0-7.3) 10/29/17 14:33 Eosinophils % (Manual) 0 % (0.0-4.3) 10/29/17 14:33 Basophils % (Manual) 0 % (0.0-1.8) 10/29/17 14:33 Metamyelocytes % 1.0 % 10/29/17 14:33 Myelocytes % 0 % 10/29/17 14:33 Promyelocytes % 0 % 10/29/17 14:33 Blast Cells % 0 % 10/29/17 14:33 Nucleated RBC % Not Reportable 10/29/17 14:33 Seg Neutrophils # 8.8 K/mm3 (1.8-7.7) H 11/01/17 06:05 Seg Neutrophils # Man 6.7 K/mm3 (1.8-7.7) 10/29/17 14:33 Band Neutrophils # 5.8 K/mm3 10/29/17 14:33 Lymphocytes # (Manual) 1.1 K/mm3 (1.2-5.4) L 10/29/17 14:33 Abs React Lymphs (Man) 0.0 K/mm3 10/29/17 14:33 Monocytes # (Manual) 0.0 K/mm3 (0.0-0.8) 10/29/17 14:33 Eosinophils # (Manual) 0.0 K/mm3 (0.0-0.4) 10/29/17 14:33 Basophils # (Manual) 0.0 K/mm3 (0.0-0.1) 10/29/17 14:33 Metamyelocytes # 0.1 K/mm3 10/29/17 14:33 Myelocytes # 0.0 K/mm3 10/29/17 14:33 Promyelocytes # 0.0 K/mm3 10/29/17 14:33 Blast Cells # 0.0 K/mm3 10/29/17 14:33 WBC Morphology Not Reportable 10/29/17 14:33 Hypersegmented Neuts Not Reportable 10/29/17 14:33 Hyposegmented Neuts Not Reportable 10/29/17 14:33 Hypogranular Neuts Not Reportable 10/29/17 14:33 Smudge Cells Not Reportable 10/29/17 14:33 Toxic Granulation Not Reportable 10/29/17 14:33 Toxic Vacuolation Not Reportable 10/29/17 14:33 Dohle Bodies Not Reportable 10/29/17 14:33 Pelger-Huet Anomaly Not Reportable 10/29/17 14:33 Ana Rods Not Reportable 10/29/17 14:33 Platelet Estimate Consistent w auto 10/29/17 14:33 Clumped Platelets Not Reportable 10/29/17 14:33 Plt Clumps, EDTA Not Reportable 10/29/17 14:33 Large Platelets 1+ 12/02/17 14:33 Giant Platelets Few 10/29/17 14:33 Platelet Satelliting Not Reportable 10/29/17 14:33 Plt Morphology Comment Not Reportable 10/29/17 14:33 RBC Morphology Normal 10/29/17 14:33 Dimorphic RBCs Not Reportable 10/29/17 14:33 Polychromasia Not Reportable 10/29/17 14:33 Hypochromasia Not Reportable 10/29/17 14:33 Poikilocytosis Not Reportable 10/29/17 14:33 Anisocytosis Not Reportable 10/29/17 14:33 Microcytosis Not Reportable 10/29/17 14:33 Macrocytosis Not Reportable 10/29/17 14:33 Spherocytes Not Reportable 10/29/17 14:33 Pappenheimer Bodies Not Reportable 10/29/17 14:33 Sickle Cells Not Reportable 10/29/17 14:33 Target Cells Not Reportable 10/29/17 14:33 Tear Drop Cells Not Reportable 10/29/17 14:33 Ovalocytes Not Reportable 10/29/17 14:33 Helmet Cells Not Reportable 10/29/17 14:33 [place] Bodies Not Reportable 10/29/17 14:33 [place] Rings Not Reportable 10/29/17 14:33 [place] Cells Not Reportable 10/29/17 14:33 Bite Cells Not Reportable 10/29/17 14:33 Crenated Cell Not Reportable 10/29/17 14:33 Elliptocytes Not Reportable 10/29/17 14:33 Acanthocytes (Spur) Not Reportable 10/29/17 14:33 Rouleaux Not Reportable 10/29/17 14:33 Hemoglobin C Crystals Not Reportable 10/29/17 14:33 Schistocytes Not Reportable 10/29/17 14:33 Malaria parasites Not Reportable 10/29/17 14:33 Aashish Bodies Not Reportable 10/29/17 14:33 Hem Pathologist Commnt No 10/29/17 14:33 Sodium 133 mmol/L (137-145) L 11/01/17 06:05 Potassium 3.7 mmol/L (3.6-5.0) 11/01/17 06:05 Chloride 90.1 mmol/L (98-107) L 11/01/17 06:05 Carbon Dioxide 15 mmol/L (22-30) L 11/01/17 06:05 Anion Gap 32 mmol/L 11/01/17 06:05 BUN 100 mg/dL (9-20) H 11/01/17 06:05 Creatinine 10.0 mg/dL (0.8-1.5) H 11/01/17 06:05 Estimated GFR 7 ml/min 11/01/17 06:05 BUN/Creatinine Ratio 10 % 11/01/17 06:05 Glucose 103 mg/dL (75-100) H 11/01/17 06:05 Hemoglobin A1c 5.9 % (4-6) 10/29/17 14:33 Lactic Acid 2.20 mmol/L (0.7-2.0) H* 10/29/17 14:33 Calcium 7.8 mg/dL (8.4-10.2) L 11/01/17 06:05 Total Bilirubin 1.30 mg/dL (0.1-1.2) H 10/30/17 05:24 AST 401 units/L (5-40) H 10/30/17 05:24 ALT 126 units/L (7-56) H 10/30/17 05:24 Alkaline Phosphatase 41 units/L (35-129) 10/30/17 05:24 Total Creatine Kinase 5568 units/L (55-170) H 11/01/17 06:05 Total Protein 6.1 g/dL (6.3-8.2) L 10/30/17 05:24 Albumin 3.1 g/dL (3.9-5) L 10/30/17 05:24 Albumin/Globulin Ratio 1.0 % 10/30/17 05:24 Amylase 88 units/L (27-131) 10/29/17 14:33 Lipase 42 units/L (13-60) 10/29/17 14:33 Urine Color Yellow (Yellow) 10/29/17 14:12 Urine Turbidity Cloudy (Clear) 10/29/17 14:12 Urine pH 5.0 (5.0-7.0) 10/29/17 14:12 Ur Specific [place] 1.015 (1.003-1.030) 10/29/17 14:12 Urine Protein 100 mg/dl mg/dL (Negative) 10/29/17 14:12 Urine Glucose (UA) Neg mg/dL (Negative) 10/29/17 14:12 Urine Ketones Neg mg/dL (Negative) 10/29/17 14:12 Urine Blood Lg (Negative) 10/29/17 14:12 Urine Nitrite Neg (Negative) 10/29/17 14:12 Urine Bilirubin Neg (Negative) 10/29/17 14:12 Urine Urobilinogen < 2.0 mg/dL (<2.0) 10/29/17 14:12 Ur Leukocyte Esterase Neg (Negative) 10/29/17 14:12 Urine WBC (Auto) < 1.0 /HPF (0.0-6.0) 10/29/17 14:12 Urine RBC (Auto) 4.0 /HPF (0.0-6.0) 10/29/17 14:12 Urine Bacteria (Auto) 2+ /HPF (Negative) 10/29/17 14:12 Amorphous Crystals Few 10/29/17 14:12 Urine Mucus Few /HPF 10/29/17 14:12 Urine Creatinine 101.8 mg/dL (0.1-20.0) H 11/01/17 10:30 Urine Sodium 32 mmol/L 11/01/17 10:30
[2017-11-02 07:03] LABS: Calcium 7.8 mg/dL (8.4-10.2); Chloride 94.7 mmol/L (98-107); Potassium 3.4 mmol/L (3.6-5.0)
--- NOTE | 2017-11-02 07:14 | Progress Note ---
Assessment and Plan 1. Acute kidney injury: Hemodynamic JAYE in the setting of volume depletion. Creatinine level has plateaued. Continue IV fluids. Renal prognosis is guarded. 2. Metabolic acidosis: Continue Sodium bicarbonate. 3. Volume depletion: IV fluids. 4. Left LL pneumonia. Subjective Date of service: 11/02/17 Principal diagnosis: SIRS LLL Pneumonia Interval history: Appetite is low. No N, V or D. Objective - Vital Signs Vital signs: Vital Signs - 12hr 11/01/17 23:30 Temperature 97.8 F Pulse Rate 68 Respiratory 18 Rate Blood Pressure 97/66 O2 Sat by Pulse 94 Oximetry - General Appearance General appearance: well-developed, well-nourished, appears stated age, obese, other (no distress) EENT: ATNC, PERRL, hearing intact, vision intact Neck: no JVD, supple Respiratory: Present: Clear to Ascultation Cardiology: regular, S1S2, no murmurs Gastrointestinal: normoactive bowel sounds, no tenderness, no distended, obese Integumentary: no rash, warm and dry Neurologic: no focal deficit, no asterixis, alert and oriented x3 Musculoskeletal: other (no edema) Psychiatric: mood/affect appropriate, cooperative - Lab 11/03/17 06:11 11/03/17 06:11 Most recent lab results Calcium 7.8 mg/dL (8.4-10.2) L 11/02/17 05:58 Urine Creatinine 101.8 mg/dL (0.1-20.0) H 11/01/17 10:30 Urine Sodium 32 mmol/L 11/01/17 10:30
[2017-11-02] MEDS ORDERED: K-DUR PO ONE (09:00)
[2017-11-02] MEDS: PEPCID PO SCH ×2 (09:53→21:38)
[2017-11-02] MEDS: SODIUM BICARBONATE PO SCH ×3 (09:54→21:38)
[2017-11-02] MEDS: NS/KCL 20MEQ 20 MEQ/1,000 ML BAG IV SCH (10:07)
[2017-11-02] MEDS: GUAIFENESIN DM SYRUP PO PRN ×2 (10:07→21:42)
--- NOTE | 2017-11-02 19:01 | Progress Note ---
Assessment and Plan Assessment and plan: 47 yo AAM admitted for fever and productive cough Sepsis Pneumonia Continue antibiotics renally dosed, IV fluids LLL pneumonia Continue antibiotics Acute renal failure Possible secondary to ATN Renal function worsened with creatinine up to 10; now very slightly trending down Continue ivf Nephrology following and considers renal prognosis guarded Metabolic acidosis Due to renal failure Treat underlying condition Hyperglycemia SSI as needed Thrombocytopenia Likely due to sepsis Monitor Elevated LFTs Possible due to sepsis Hepatitis panel pending Obesity Counseled regarding importance of losing weight and lifestyle changes DVT prophylaxis History Interval history: no complaints, inpatient to be discharged Hospitalist Physical - Constitutional Vitals: Temp Pulse Resp BP Pulse Ox 97.4 F L 68 18 136/75 95 11/02/17 15:32 11/02/17 15:32 11/02/17 15:32 11/02/17 15:32 11/02/17 15:32 General appearance: Present: no acute distress, obese - EENT Eyes: Present: PERRL, EOM intact - Neck Neck: Present: supple, other (short neck). Absent: masses or JVD - Respiratory Respiratory effort: normal Respiratory: bilateral: diminished, negative: rhonchi, wheezing - Cardiovascular Rhythm: regular Heart Sounds: Present: S1 & S2. Absent: systolic murmur - Extremities Extremities: no ischemia - Abdominal General gastrointestinal: soft, non-tender, non-distended, normal bowel sounds - Psychiatric Psychiatric: no intact judgment & insight - Neurologic Neurologic: CNII-XII intact, no focal deficits Results - Labs CBC & Chem 7: 11/03/17 06:11 11/03/17 06:11 Labs: Laboratory Last Values WBC 11.4 K/mm3 (4.5-11.0) H 11/01/17 06:05 RBC 4.81 M/mm3 (3.65-5.03) 11/01/17 06:05 Hgb 14.4 gm/dl (11.8-15.2) 11/01/17 06:05 Hct 42.2 % (35.5-45.6) 11/01/17 06:05 MCV 88 fl (84-94) 11/01/17 06:05 MCH 30 pg (28-32) 11/01/17 06:05 MCHC 34 % (32-34) 11/01/17 06:05 RDW 13.6 % (13.2-15.2) 11/01/17 06:05 Plt Count 171 K/mm3 (140-440) 11/01/17 06:05 Lymph % (Auto) 11.8 % (13.4-35.0) L 11/01/17 06:05 [place] % (Auto) 10.9 % (0.0-7.3) H 11/01/17 06:05 Eos % (Auto) 0.1 % (0.0-4.3) 11/01/17 06:05 Baso % (Auto) 0.2 % (0.0-1.8) 11/01/17 06:05 Lymph # 1.3 K/mm3 (1.2-5.4) 11/01/17 06:05 [place] # 1.2 K/mm3 (0.0-0.8) H 11/01/17 06:05 Eos # 0.0 K/mm3 (0.0-0.4) 11/01/17 06:05 Baso # 0.0 K/mm3 (0.0-0.1) 11/01/17 06:05 Add Manual Diff Complete 10/29/17 14:33 Total Counted 100 10/29/17 14:33 Seg Neutrophils % 77.0 % (40.0-70.0) H 11/01/17 06:05 Seg Neuts % (Manual) 49.0 % (40.0-70.0) 10/29/17 14:33 Band Neutrophils % 42.0 % 10/29/17 14:33 Lymphocytes % (Manual) 8.0 % (13.4-35.0) L 10/29/17 14:33 Reactive Lymphs % (Man) 0 % 10/29/17 14:33 Monocytes % (Manual) 0 % (0.0-7.3) 10/29/17 14:33 Eosinophils % (Manual) 0 % (0.0-4.3) 10/29/17 14:33 Basophils % (Manual) 0 % (0.0-1.8) 10/29/17 14:33 Metamyelocytes % 1.0 % 10/29/17 14:33 Myelocytes % 0 % 10/29/17 14:33 Promyelocytes % 0 % 10/29/17 14:33 Blast Cells % 0 % 10/29/17 14:33 Nucleated RBC % Not Reportable 10/29/17 14:33 Seg Neutrophils # 8.8 K/mm3 (1.8-7.7) H 11/01/17 06:05 Seg Neutrophils # Man 6.7 K/mm3 (1.8-7.7) 10/29/17 14:33 Band Neutrophils # 5.8 K/mm3 10/29/17 14:33 Lymphocytes # (Manual) 1.1 K/mm3 (1.2-5.4) L 10/29/17 14:33 Abs React Lymphs (Man) 0.0 K/mm3 10/29/17 14:33 Monocytes # (Manual) 0.0 K/mm3 (0.0-0.8) 10/29/17 14:33 Eosinophils # (Manual) 0.0 K/mm3 (0.0-0.4) 10/29/17 14:33 Basophils # (Manual) 0.0 K/mm3 (0.0-0.1) 10/29/17 14:33 Metamyelocytes # 0.1 K/mm3 10/29/17 14:33 Myelocytes # 0.0 K/mm3 10/29/17 14:33 Promyelocytes # 0.0 K/mm3 10/29/17 14:33 Blast Cells # 0.0 K/mm3 10/29/17 14:33 WBC Morphology Not Reportable 10/29/17 14:33 Hypersegmented Neuts Not Reportable 10/29/17 14:33 Hyposegmented Neuts Not Reportable 10/29/17 14:33 Hypogranular Neuts Not Reportable 10/29/17 14:33 Smudge Cells Not Reportable 10/29/17 14:33 Toxic Granulation Not Reportable 10/29/17 14:33 Toxic Vacuolation Not Reportable 10/29/17 14:33 Dohle Bodies Not Reportable 10/29/17 14:33 Pelger-Huet Anomaly Not Reportable 10/29/17 14:33 Ana Rods Not Reportable 10/29/17 14:33 Platelet Estimate Consistent w auto 10/29/17 14:33 Clumped Platelets Not Reportable 10/29/17 14:33 Plt Clumps, EDTA Not Reportable 10/29/17 14:33 Large Platelets 1+ 10/29/17 14:33 Giant Platelets Few 10/29/17 14:33 Platelet Satelliting Not Reportable 10/29/17 14:33 Plt Morphology Comment Not Reportable 10/29/17 14:33 RBC Morphology Normal 10/29/17 14:33 Dimorphic RBCs Not Reportable 10/29/17 14:33 Polychromasia Not Reportable 10/29/17 14:33 Hypochromasia Not Reportable 10/29/17 14:33 Poikilocytosis Not Reportable 10/29/17 14:33 Anisocytosis Not Reportable 10/29/17 14:33 Microcytosis Not Reportable 10/29/17 14:33 Macrocytosis Not Reportable 10/29/17 14:33 Spherocytes Not Reportable 10/29/17 14:33 Pappenheimer Bodies Not Reportable 10/29/17 14:33 Sickle Cells Not Reportable 10/29/17 14:33 Target Cells Not Reportable 10/29/17 14:33 Tear Drop Cells Not Reportable 10/29/17 14:33 Ovalocytes Not Reportable 10/29/17 14:33 Helmet Cells Not Reportable 10/29/17 14:33 Ward-[place] Bodies Not Reportable 10/29/17 14:33 [place] Rings Not Reportable 10/29/17 14:33 [place] Cells Not Reportable 10/29/17 14:33 Bite Cells Not Reportable 10/29/17 14:33 Crenated Cell Not Reportable 10/29/17 14:33 Elliptocytes Not Reportable 10/29/17 14:33 Acanthocytes (Spur) Not Reportable 10/29/17 14:33 Rouleaux Not Reportable 10/29/17 14:33 Hemoglobin C Crystals Not Reportable 10/29/17 14:33 Schistocytes Not Reportable 10/29/17 14:33 Malaria parasites Not Reportable 10/29/17 14:33 Aashish Bodies Not Reportable 10/29/17 14:33 Hem Pathologist Commnt No 10/29/17 14:33 Sodium 136 mmol/L (137-145) L 11/02/17 05:58 Potassium 3.4 mmol/L (3.6-5.0) L 11/02/17 05:58 Chloride 94.7 mmol/L (98-107) L 11/02/17 05:58 Carbon Dioxide 17 mmol/L (22-30) L 11/02/17 05:58 Anion Gap 28 mmol/L 11/02/17 05:58 BUN 107 mg/dL (9-20) H 11/02/17 05:58 Creatinine 9.5 mg/dL (0.8-1.5) H 11/02/17 05:58 Estimated GFR 7 ml/min 11/02/17 05:58 BUN/Creatinine Ratio 11 % 11/02/17 05:58 Glucose 128 mg/dL (75-100) H 11/02/17 05:58 Hemoglobin A1c 5.9 % (4-6) 10/29/17 14:33 Lactic Acid 2.20 mmol/L (0.7-2.0) H* 10/29/17 14:33 Calcium 7.8 mg/dL (8.4-10.2) L 11/02/17 05:58 Total Bilirubin 1.30 mg/dL (0.1-1.2) H 10/30/17 05:24 AST 401 units/L (5-40) H 10/30/17 05:24 ALT 126 units/L (7-56) H 10/30/17 05:24 Alkaline Phosphatase 41 units/L (35-129) 10/30/17 05:24 Total Creatine Kinase 2573 units/L (55-170) H 11/02/17 05:58 Total Protein 6.1 g/dL (6.3-8.2) L 10/30/17 05:24 Albumin 3.1 g/dL (3.9-5) L 10/30/17 05:24 Albumin/Globulin Ratio 1.0 % 10/30/17 05:24 Amylase 88 units/L (27-131) 10/29/17 14:33 Lipase 42 units/L (13-60) 10/29/17 14:33 Urine Color Yellow (Yellow) 10/29/17 14:12 Urine Turbidity Cloudy (Clear) 10/29/17 14:12 Urine pH 5.0 (5.0-7.0) 10/29/17 14:12 Ur Specific [place] 1.015 (1.003-1.030) 10/29/17 14:12 Urine Protein 100 mg/dl mg/dL (Negative) 10/29/17 14:12 Urine Glucose (UA) Neg mg/dL (Negative) 10/29/17 14:12 Urine Ketones Neg mg/dL (Negative) 10/29/17 14:12 Urine Blood Lg (Negative) 10/29/17 14:12 Urine Nitrite Neg (Negative) 10/29/17 14:12 Urine Bilirubin Neg (Negative) 10/29/17 14:12 Urine Urobilinogen < 2.0 mg/dL (<2.0) 10/29/17 14:12 Ur Leukocyte Esterase Neg (Negative) 10/29/17 14:12 Urine WBC (Auto) < 1.0 /HPF (0.0-6.0) 10/29/17 14:12 Urine RBC (Auto) 4.0 /HPF (0.0-6.0) 10/29/17 14:12 Urine Bacteria (Auto) 2+ /HPF (Negative) 10/29/17 14:12 Amorphous Crystals Few 10/29/17 14:12 Urine Mucus Few /HPF 10/29/17 14:12 Urine Creatinine 101.8 mg/dL (0.1-20.0) H 11/01/17 10:30 Urine Sodium 32 mmol/L 11/01/17 10:30
[2017-11-03] MEDS: NS/KCL 20MEQ 20 MEQ/1,000 ML BAG IV SCH (00:21)
[2017-11-03 07:10] LABS: Hematocrit 40.6 % (35.5-45.6); Mean Corpuscular HGB Conc 34 % (32-34); Mean Corpuscular Hemoglobin 30 pg (28-32); Mean Corpuscular Volume 87 fl (84-94); Platelet Count 243 K/mm3 (140-440); Red Blood Count 4.68 M/mm3 (3.65-5.03); Red Cell Distribution Width 14.1 % (13.2-15.2); White Blood Count 8.6 K/mm3 (4.5-11.0)
[2017-11-03 07:33] LABS: Albumin 2.9 g/dL (3.9-5); Albumin/Globulin Ratio 0.8 %; Bilirubin,Total 0.8 mg/dL (0.1-1.2); Calcium 7.9 mg/dL (8.4-10.2); Chloride 100.3 mmol/L (98-107); Magnesium 2.8 mg/dL (1.7-2.3); Potassium 3.7 mmol/L (3.6-5.0); Total Protein 6.7 g/dL (6.3-8.2)
[2017-11-03 08:22] LABS: Anisocytosis Few; Basophils % (Manual) 0 % (0.0-1.8); Blastocytes % (Manual) 0 %; Diff Status Complete; Poikilocytosis Few
[2017-11-03 08:28] VITALS: BP 127/78
--- NOTE | 2017-11-03 09:39 | Progress Note ---
Assessment and Plan 1. Acute kidney injury: Hemodynamic JAYE in the setting of volume depletion. Creatinine level is improving. Continue IV fluids. Renal prognosis is guarded. 2. Metabolic acidosis: Continue Sodium bicarbonate. 3. Volume depletion: IV fluids. 4. Rhabdomyolysis: Improving. 5. Hypokalemia: Improving. 6. Left LL pneumonia. 7. Elevated LFTs: Improving. Subjective Date of service: 11/03/17 Principal diagnosis: SIRS LLL Pneumonia Interval history: Appetite is low. No N, V or D. Objective - Vital Signs Vital signs: Vital Signs - 12hr 11/03/17 11/03/17 00:26 08:19 Temperature 97.8 F 97.6 F Pulse Rate 75 62 Respiratory 20 22 Rate Blood Pressure 118/80 127/78 O2 Sat by Pulse 96 97 Oximetry - General Appearance General appearance: well-developed, well-nourished, appears stated age, obese, other (no distress) EENT: ATNC, PERRL, mucous membranes moist, hearing intact, vision intact Neck: supple Respiratory: Present: Clear to Ascultation Cardiology: regular, S1S2, no murmurs Gastrointestinal: normoactive bowel sounds, no tenderness, no distended, obese Integumentary: no rash, warm and dry Neurologic: no focal deficit, no asterixis, alert and oriented x3 Musculoskeletal: other (no edema) Psychiatric: mood/affect appropriate, cooperative - Lab 11/03/17 06:11 11/03/17 06:11 Most recent lab results Calcium 7.9 mg/dL (8.4-10.2) L 11/03/17 06:11 Magnesium 2.80 mg/dL (1.7-2.3) H 11/03/17 06:11 Urine Creatinine 101.8 mg/dL (0.1-20.0) H 11/01/17 10:30 Urine Sodium 32 mmol/L 11/01/17 10:30
[2017-11-03] MEDS: PEPCID PO SCH (09:53)
[2017-11-03] MEDS: SODIUM BICARBONATE PO SCH ×2 (09:54→14:46)
[2017-11-03] MEDS: LEVAQUIN 500MG/100ML 500 MG/100 ML BAG IV SCH (09:56)
--- NOTE | 2017-11-03 17:06 | Discharge Summary ---
Providers - Providers Date of Admission: 10/29/17 17:29 Date of discharge: 11/03/17 Attending physician: LEXIS LEBLANC 10/31/17 08:09 Consult to Physician [CONS] Routine Consulting Provider: MARK RG Reason For Exam: JAYE Place consult to:: dr. rg Notified:: answering service Phone number called:: Was contact made?: No Time called:: 08:45 Comment:: left message on a/m Primary care physician: WALL WORKER Hospitalization Reason for admission: fever, productive cough Condition: Serious Pertinent studies: CXT Renal US Hospital course: Patient is a 47 years old obese -[place] male with no significant past medical history who was admitted for fever and productive cough. Diagnosed with sepsis due to pneumonia and acute renal failure. Started on antibiotics renally dosed and aggressive IV hydration. [place] better and left the hospital AGAINST MEDICAL ADVICE despite being in renal failure and being counseled by physicians, internal medicine and nephrology, about all the risks. Disposition: DC-07 LEFT AGAINST MED ADVICE Core Measure Documentation - Palliative Care Palliative Care/ Comfort Measures: Not Applicable - Core Measures Any of the following diagnoses?: none Exam - Constitutional Vitals: Temp Pulse Resp BP Pulse Ox 97.6 F 62 22 127/78 97 11/03/17 08:19 11/03/17 08:19 11/03/17 08:19 11/03/17 08:19 11/03/17 08:19 Plan Follow up with: DIYA HOFFMAN MD [Primary Care Provider] - 3-5 Days
[2017-11-05] MEDS ORDERED: LEVAQUIN PO SCH (10:00)
[2017-11-07 13:28] LABS: Myeloperoxidase Antibody <1.0 AI (<1.0)
--- NOTE | 2017-12-09 08:47 | Query- General ---
Yvon Diallo Jayjay Date:____12/09/2017 Power And Recovery Supervisor/CDS:___anabel Jaclyn Jones / Azaeljorge Phone#:____[phone] Exercise your independent professional judgment when responding to this query. Questions asked do not imply a particular answer is desired or expected. We greatly appreciate your clarification on this issue. Clinical Documentation States: "47 y/o AAM with no significant PMH comes in for Cough and fever for 1 week. Cough productive of mucoid sputum. Has body aches. Occasionally yellow sputum. No exacerbating or relieving factors." "Assessment: Systemic Inflammatory Response Syndrome, LLL pneumonia."[H&P, MEME GUADARRAMA MD 10/29/2017] There is/are low of blood pressure reading(s) based on documentation: MAP of 62 mm Hg at 15:31 on 10/29/2017 Our records reflect that the patient has the following conditions: Acute kidney injury Volume depletion Fever PHYSICIAN RESPONSE: Based on the low blood pressure reading(s), please clarify if the diagnosis/ scenario above is: [ ] Due to an acute non-infectious condition (Please specify: ) [ ] Due to a chronic non-infectious condition (Please specify: ) [ ] Due to medication [ ] Normal for the patient [ ] Erroneous reading(s) [ ] Due to infection [ ] Clinically undetermined [ ] Other: [ ] Comment/Explanation: Please also document response in your Progress Notes and/or Discharge Summary and indicate if the condition was present on admission. MTDD
== END 2017-11-03 16:22 | disposition left against medical advice (07) | DRG 871 ==
LOC: ED 13:10 → 3A 17:29
PROVIDERS: ADMIT Internal Medicine; ATTEND Internal Medicine
DX: A41.9 Sepsis, unspecified organism (principal); J18.1 Lobar pneumonia, unspecified organism; N17.0 Acute kidney failure with tubular necrosis; M62.82 Rhabdomyolysis; R73.9 Hyperglycemia, unspecified; Z53.21 Procedure and treatment not carried out due to patient leaving prior to being seen by health care provider; R63.0 Anorexia; E86.9 Volume depletion, unspecified; D69.6 Thrombocytopenia, unspecified; E87.6 Hypokalemia; Z68.34 Body mass index [BMI] 34.0-34.9, adult; Z82.49 Family history of ischemic heart disease and other diseases of the circulatory system
CPT/HCPCS: 36415; 71020; 76770; 80048; 80053; 81001; 82140; 82150; 82550; 82570; 83036; 83690; 83735; 84300; 85007; 85025; 86021; 86038; 86705; 86706; 86803; 87040; 87116; 87400; 87430; 96361; 96365; J1956; J2405; J2543; J7030; J7042

== ENCOUNTER 2017-11-05 11:58 | Emergency (ER) | payer OTHER ==
[2017-11-05 12:52] LABS: Hematocrit 39.9 % (35.5-45.6); Hemoglobin 13.7 gm/dl (11.8-15.2); Mean Corpuscular HGB Conc 35 % (32-34); Mean Corpuscular Hemoglobin 30 pg (28-32); Mean Corpuscular Volume 88 fl (84-94); Platelet Count 245 K/mm3 (140-440); Red Blood Count 4.55 M/mm3 (3.65-5.03); Red Cell Distribution Width 13.7 % (13.2-15.2); White Blood Count 9.9 K/mm3 (4.5-11.0)
[2017-11-05 13:15] LABS: Calcium 8.5 mg/dL (8.4-10.2); Chloride 104.2 mmol/L (98-107); Potassium 3.9 mmol/L (3.6-5.0)
--- NOTE | 2017-11-05 14:20 | Emergency Department Report ---
ED General Adult HPI - General Chief complaint: Weakness Stated complaint: FLU Source: patient, old records reviewed Mode of arrival: Ambulatory Limitations: No Limitations - History of Present Illness Initial comments: 47-year-old male with a past medical history of recently diagnosed pneumonia and renal insufficiency presents to the hospital after leaving AMA on the . Patient states that he has no appetite and has similar symptoms upon his initial admission. Intermittent vomiting reported with food intake but tolerating fluids. Patient denies any pain, cough, shortness of breath, or fevers. Patient denies being discharged on any medication and does not take any medication at home. Patient was recently admitted here October 29 until signing out AMA on November 03. Upon his admission his creatinine was 2.9 with an unknown history of renal insufficiency. Patient's creatinine got as high as 10 during admission and was 8.2 with a BUN of 100 prior to leaving AMA on the . Patient also had a CK level 5568 that was gradually trending downward during hospitalization. CK 987 on the . Patient had a chest x-ray on October 29 showing a large chest left lower lobe pneumonia. - Related Data Previous Rx's Medication Instructions Recorded Last Taken Type Levofloxacin [Levaquin] 750 mg PO QDAY #7 tablet 11/05/17 Unknown Rx Promethazine [Phenergan TAB] 25 mg PO Q6HR PRN #20 tab 11/05/17 Unknown Rx Allergies Allergy/AdvReac Type Severity Reaction Status Date / Time No Known Allergies Allergy Verified 11/05/17 12:17 ED Review of Systems ROS: Stated complaint: FLU Other details as noted in HPI Comment: All other systems reviewed and negative Other: Constitutional: No fevers chills Eyes: No eye pain visual changes ENT: No ear pain or throat pain Neck: Denies pain Respiratory: Denies cough wheezing shortness of breath Cardiovascular: Denies chest pain, palpitations, syncope GI: Denies abdominal pain : Denies dysuria Musculoskeletal: Denies back pain, joint swelling Skin: Denies rash, lesions, erythema Neurologic: Denies headache, numbness, weakness Psychiatric: Denies suicidal ideation, hallucinations ED Past Medical Hx - Past Medical History Previous Medical History?: No Hx Renal Disease: Yes (renal insuf) - Surgical History Past Surgical History?: No - Social History Smoking Status: Never Smoker Substance Use Type: None - Medications Home Medications: Home Medications Medication Instructions Recorded Confirmed Last Taken Type Levofloxacin [Levaquin] 750 mg PO QDAY #7 tablet 11/05/17 Unknown Rx Promethazine [Phenergan TAB] 25 mg PO Q6HR PRN #20 tab 11/05/17 Unknown Rx ED Physical Exam - General Limitations: No Limitations - Other Other exam information: General: No limitations, patient is alert in no acute distress Head exam: Atraumatic, normocephalic Eyes exam: Normal appearance, pupils equal reactive to light, extraocular movements intact ENT: Moist mucous membrane, normal oropharynx Neck exam: Normal inspection, full range of motion, no meningismus nontender Respiratory exam: Clear to auscultation bilateral, no wheezes, rales, crackles Cardiovascular: Normal rate and rhythm, normal heart sounds Abdomen: Soft, nondistended, and nontender, with normal bowel sounds, no rebound, or guarding Extremity: Full range of motion normal inspection no deformity Back: Normal Inspection, full range of motion, no tenderness Neurologic: Alert, oriented x3, cranial nerves intact, no motor or sensory deficit Psychiatric: normal affect, normal mood Skin: Warm, dry, intact ED Course Vital Signs 11/05/17 11/05/17 11/05/17 12:18 14:25 14:28 Temperature 97.7 F 97.4 F L Pulse Rate 70 68 65 Respiratory 16 16 Rate Blood Pressure 120/83 Blood Pressure 144/84 [Left] O2 Sat by Pulse 97 99 Oximetry 11/05/17 15:04 Temperature 97.4 F L Pulse Rate 65 Respiratory 16 Rate Blood Pressure Blood Pressure 151/88 [Left] O2 Sat by Pulse 99 Oximetry - Reevaluation(s) Reevaluation #1: 11/05/17 17:55 Pt received: NS 1 L, Zofran, IV levaquin prior to d/c - Consultations Consultation #1: 11/05/17 15:[address] Hemphill who informed me that patient would be coming to the hospital prior to patient's arrival. Patient apparently left AMA with acute and newly diagnosed renal insufficiency, pneumonia, and rhabdomyolysis. Patient left AMA prior to completion of treatment. We discussed patient's current BUN/creatinine, CK level, and x-ray which all show improvement compared to recent visit. Patient does not require readmission at this time. Patient to follow-up in the office with Dr. Hemphill, take Levaquin daily for 7 days, and continue to drink plenty of fluids ED Medical Decision Making - Lab Data Result diagrams: 11/05/17 12:39 11/05/17 12:39 Lab Results 11/05/17 11/05/17 11/05/17 Range/Units 12:39 12:39 12:39 WBC 9.9 (4.5-11.0) K/mm3 RBC 4.55 (3.65-5.03) M/mm3 Hgb 13.7 (11.8-15.2) gm/dl Hct 39.9 (35.5-45.6) % MCV 88 (84-94) fl MCH 30 (28-32) pg MCHC 35 H (32-34) % RDW 13.7 (13.2-15.2) % Plt Count 245 (140-440) K/mm3 Add Manual Diff Complete Total Counted 100 Seg Neuts % (Manual) 63.0 (40.0-70.0) % Band Neutrophils % 1.0 % Lymphocytes % (Manual) 16.0 (13.4-35.0) % Reactive Lymphs % (Man) 0 % Monocytes % (Manual) 13.0 H (0.0-7.3) % Eosinophils % (Manual) 4.0 (0.0-4.3) % Basophils % (Manual) 0 (0.0-1.8) % Metamyelocytes % 3.0 % Myelocytes % 0 % Promyelocytes % 0 % Blast Cells % 0 % Nucleated RBC % Not Reportable Seg Neutrophils # Man 6.2 (1.8-7.7) K/mm3 Band Neutrophils # 0.1 K/mm3 Lymphocytes # (Manual) 1.6 (1.2-5.4) K/mm3 Abs React Lymphs (Man) 0.0 K/mm3 Monocytes # (Manual) 1.3 H (0.0-0.8) K/mm3 Eosinophils # (Manual) 0.4 (0.0-0.4) K/mm3 Basophils # (Manual) 0.0 (0.0-0.1) K/mm3 Metamyelocytes # 0.3 K/mm3 Myelocytes # 0.0 K/mm3 Promyelocytes # 0.0 K/mm3 Blast Cells # 0.0 K/mm3 WBC Morphology Not Reportable Hypersegmented Neuts Not Reportable Hyposegmented Neuts Not Reportable Hypogranular Neuts Not Reportable Smudge Cells Not Reportable Toxic Granulation Not Reportable Toxic Vacuolation Not Reportable Dohle Bodies Not Reportable Pelger-Huet Anomaly Not Reportable Ana Rods Not Reportable Platelet Estimate Consistent w auto Clumped Platelets Not Reportable Plt Clumps, EDTA Not Reportable Large Platelets 1+ Giant Platelets Not Reportable Platelet Satelliting Not Reportable Plt Morphology Comment Not Reportable RBC Morphology Normal Dimorphic RBCs Not Reportable Polychromasia Not Reportable Hypochromasia Not Reportable Poikilocytosis Not Reportable Anisocytosis Not Reportable Microcytosis Not Reportable Macrocytosis Not Reportable Spherocytes Not Reportable Pappenheimer Bodies Not Reportable Sickle Cells Not Reportable Target Cells Not Reportable Tear Drop Cells Not Reportable Ovalocytes Not Reportable Helmet Cells Not Reportable [place] Bodies Not Reportable [place] Rings Not Reportable [place] Cells Not Reportable Bite Cells Not Reportable Crenated Cell Not Reportable Elliptocytes Not Reportable Acanthocytes (Spur) Not Reportable Rouleaux Not Reportable Hemoglobin C Crystals Not Reportable Schistocytes Not Reportable Malaria parasites Not Reportable Aashish Bodies Not Reportable Hem Pathologist Commnt No Sodium 143 (137-145) mmol/L Potassium 3.9 (3.6-5.0) mmol/L Chloride 104.2 (98-107) mmol/L Carbon Dioxide 22 (22-30) mmol/L Anion Gap 21 mmol/L BUN 58 H (9-20) mg/dL Creatinine 3.6 H D (0.8-1.5) mg/dL Estimated GFR 22 ml/min BUN/Creatinine Ratio 16 % Glucose 149 H (75-100) mg/dL Calcium 8.5 (8.4-10.2) mg/dL Total Creatine Kinase 987 H (55-170) units/L NT-Pro-B Natriuret Pep 323.1 (0-450) pg/mL - Radiology Data Radiology results: report reviewed Chest x-ray: persistent but improved left lower infiltrate - Medical Decision Making Patient left AMA from recent admission as previously discussed. All patient's values including pulmonary infiltrate are improving. Case discussed with Dr Hemphill and no admission necessary from renal stand point. Patient does not meet admission criteria for pneumonia and no signs of hypoxia, or respiratory distress in the ED. Patient be discharged on Phenergan and Levaquin and follow- up will be encouraged - Differential Diagnosis renal insufficiency, rhabdomyolysis, pneumonia Critical Care Time: No Critical care attestation.: If time is entered above; I have spent that time in minutes in the direct care of this critically ill patient, excluding procedure time. ED Disposition Clinical Impression: LLL pneumonia, Renal insufficiency, Rhabdomyolysis Disposition: TO HOME OR SELFCARE Is pt being admited?: No Does the pt Need Aspirin: No Condition: Stable Instructions: Community-acquired Pneumonia (ED), Impaired Kidney Function (ED) , Rhabdomyolysis (ED) Additional Instructions: It is very important that you continue to drink plenty of fluids. Phenergan has been prescribed to help with your nausea and vomiting. It very important to follow-up with a parcel post delivery/Dr. Hemphill for further monitoring of your renal function. Take antibiotics until completion for treatment of pneumonia. Please return if symptoms worsen as indicated by your discharged instructions Prescriptions: Levofloxacin [Levaquin] 750 mg PO QDAY #7 tablet Promethazine [Phenergan TAB] 25 mg PO Q6HR PRN #20 tab PRN Reason: Nausea Referrals: PRIMARY CARE, [Primary Care Provider] - 3-5 Days SAADIA HARRIS MD [Staff Physician] - 3-5 Days (Primary care doctor ) MARK HEMPHILL MD [Staff Physician] - 3-5 Days (Kidney specialist )
--- NOTE | 2017-11-05 14:37 | XRay Report ---
FINAL REPORT EXAM: XR CHEST ROUTINE 2V HISTORY: recent infiltrate TECHNIQUE: Chest, two views PRIORS: 10/29/2017 FINDINGS: There is persistent but improved left lower lobe infiltrate. Right lung is clear. There no cardiomegaly or vascular congestion. There is no pleural effusion or pneumothorax seen. IMPRESSION: Persistent but improved left lower lobe infiltrate.
[2017-11-05] MEDS ORDERED: ROCEPHIN/NS 1 GM/50 ML 1 GM/50 ML BAG IV ONE (15:12)
[2017-11-05] MEDS ORDERED: NACL 0.9% 1000 ML 1,000 ML IV ONE (15:12)
[2017-11-05 15:21] LABS: Basophils % (Manual) 0 % (0.0-1.8); Blastocytes % (Manual) 0 %; RBC Morphology Normal
[2017-11-05 15:22] LABS: Diff Status Complete; Large Platelets 1+; Platelet Estimate Consistent w Auto
[2017-11-05] MEDS ORDERED: LEVAQUIN 750MG/150ML 750 MG/150 ML BAG IV ONE (15:23)
[2017-11-05] MEDS ORDERED: cefTRIAXone 1 GM in NACL 0.9% 20 ML IV ONE (16:00)
[2017-11-05] MEDS ORDERED: ZITHROMAX 500 MG in NACL 0.9% 250ML 250 ML IV ONE (16:12)
[2017-11-05 19:37] VITALS: BP 122/82
== END 2017-11-05 17:30 | disposition home or self-care (01) ==
LOC: ED 11:58
DX: N28.9 Disorder of kidney and ureter, unspecified (principal); M62.82 Rhabdomyolysis; J18.1 Lobar pneumonia, unspecified organism
CPT/HCPCS: 36415; 71020; 80048; 82550; 83880; 85007; 85025; 96365; 99284; J1956; J7030; J0456; J0696; J7050